=== PATIENT | male | born 1955 | race Caucasian/White ===

== ENCOUNTER 2016-10-16 12:26 | Inpatient (IN) | payer BC ==
[~2016-10-16] VITALS: Ht 177.8 cm; Wt 84.0 kg
[~2016-10-16 12:26] MED LIST: HYDROCODON-ACE1 EAC7 PO
[2016-10-16 14:16] LABS: EOSINOPHIL (%) 2.3 % (0-5); EOSINOPHIL COUNT 0.1 K/uL (0-0.3); HEMATOCRIT 43.7 % (38.0-50.0); IMMATURE GRANULOCYTE (%) 0.2 % (0.0-0.7); INSTRUMENT ABS NEUTROPHIL CT 3.8 K/uL; LYMPHOCYTE COUNT 1.2 K/uL (1.0-2.8); MCH 29.8 PG (29.0-34.0); MCHC 33.9 G/DL (30.0-36.0); MCV 87.9 FL (86-99); MEAN PLAT.VOLUME 11.9 uM^3 (9.0-12.4); MONOCYTE (%) 8.3 % (3-12); MONOCYTE COUNT 0.5 K/uL (0-0.8); NEUTROPHIL (%) 67.9 % (45-76); NEUTROPHIL COUNT 3.8 K/uL (1.8-6.4); PLATELET COUNT 114 K/uL (156-360); RBC DIS.WIDTH-CV 12.3 % (11.8-14.6); RBC DIS.WIDTH-SD 39.5 % (39-53); RED BLOOD COUNT 4.97 M/uL (4.00-5.50); WHITE BLOOD COUNT 5.6 K/uL (4.1-10.2)
[2016-10-16 14:29] LABS: CHLORIDE 108 mEq/L (99-109); POTASSIUM 4.4 mEq/L (3.7-5.4); SODIUM 140 mEq/L (136-147)
[2016-10-16 14:31] LABS: GLUCOSE 98 mg/dL (70-99)
[2016-10-16 14:32] LABS: ANION GAP 9 MEQ/L (2-14)
[2016-10-16 14:33] LABS: TOTAL BILIRUBIN 0.7 mg/dL (0.0-1.0)
[2016-10-16 14:35] LABS: ALKALINE PHOSPHATASE 65 IU/L (3-129); GFR ESTIMATE (CALCULATED) 54 mL/min/
[2016-10-16 14:36] LABS: UREA NITROGEN (BUN) 21 mg/dL (9-23)
[2016-10-16 14:40] LABS: TROP-I INTERPRETATION NEGATIVE; TROPONIN-I < 0.01 ng/mL (0.0-0.30)
[2016-10-16] MEDS ORDERED: ADVIL200 MG PO (15:07)
[2016-10-16] MEDS ORDERED: MAGNESIUM400 M1 PO (15:08)
[2016-10-16] MEDS ORDERED: VITAMIN D31000 UNI2 PO (15:08)
[2016-10-16] MEDS ORDERED: UBIQUINOL100 MG PO (15:09)
[2016-10-16] MEDS ORDERED: ASCORBIC ACID100 MG PO (15:12)
[2016-10-16 18:03] LABS: TROP-I INTERPRETATION NEGATIVE; TROPONIN-I < 0.01 ng/mL (0.0-0.30)
[2016-10-16 20:29] VITALS: BP 160/85
[2016-10-16 23:44] VITALS: BP 124/72
[2016-10-17 01:58] LABS: TROP-I INTERPRETATION NEGATIVE; TROPONIN-I < 0.01 ng/mL (0.0-0.30)
[2016-10-17 03:38] VITALS: BP 135/77
[2016-10-17 07:04] LABS: HEMATOCRIT 41.1 % (38.0-50.0); MCHC 33.3 G/DL (30.0-36.0); MCV 89.9 FL (86-99); MEAN PLAT.VOLUME 12.5 uM^3 (9.0-12.4); PLATELET COUNT 98 K/uL (156-360); RBC DIS.WIDTH-CV 12.6 % (11.8-14.6); RBC DIS.WIDTH-SD 41.4 % (39-53); RED BLOOD COUNT 4.57 M/uL (4.00-5.50); WHITE BLOOD COUNT 4.8 K/uL (4.1-10.2)
[2016-10-17 07:36] LABS: ANION GAP 6 MEQ/L (2-14); CHLORIDE 106 MEQ/L (99-109); GFR ESTIMATE (CALCULATED) 47 mL/min/; GLUCOSE 101 mg/dL (70-99); HDL CHOLESTEROL 48 MG/DL (Desirable>=40); LDL CHOLESTEROL 146 mg/dL (Desirable<100); NON-HDL CHOLESTEROL 163 mg/dL (Desirable<160); POTASSIUM 4.6 MEQ/L (3.7-5.4); SAMPLE HEMOLYSIS CHECK 0; SAMPLE ICTERIC CHECK 0; SAMPLE LIPEMIA CHECK 0; SODIUM 140 MEQ/L (136-147); TOTAL CHOLESTEROL 211 mg/dL (Desirable<200); TRIGLYCERIDES 85 MG/DL (Normal: <150); UREA NITROGEN (BUN) 20 mg/dL (9-23)
[2016-10-17 08:22] VITALS: BP 147/78
[2016-10-17 08:28] LABS: Estimated Average Glucose 120 mg/dL (70-123); HEMOGLOBIN A1c (GLYCOHEMOGLOB) 5.8 % HGB (Below 5.7)
[2016-10-17 15:24] VITALS: BP 136/71
[2016-10-17 19:35] VITALS: BP 123/79
[2016-10-17 23:00] VITALS: BP 127/78
[2016-10-18 04:45] VITALS: BP 144/85
[2016-10-18 07:14] VITALS: BP 137/80
[2016-10-18 09:03] LABS: HEMATOCRIT 43.6 % (38.0-50.0); MCH 29.8 PG (29.0-34.0); MCHC 33.7 G/DL (30.0-36.0); MCV 88.4 FL (86-99); PLATELET COUNT 101 K/uL (156-360); RBC DIS.WIDTH-CV 12.4 % (11.8-14.6); RBC DIS.WIDTH-SD 40.6 % (39-53); RED BLOOD COUNT 4.93 M/uL (4.00-5.50); WHITE BLOOD COUNT 4.5 K/uL (4.1-10.2)
[2016-10-18 09:43] LABS: ANION GAP 7 MEQ/L (2-14); CHLORIDE 104 MEQ/L (99-109); GFR ESTIMATE (CALCULATED) 50 mL/min/; GLUCOSE 107 mg/dL (70-99); POTASSIUM 4.5 MEQ/L (3.7-5.4); SAMPLE HEMOLYSIS CHECK 0; SAMPLE ICTERIC CHECK 0; SAMPLE LIPEMIA CHECK 0; SODIUM 139 MEQ/L (136-147); UREA NITROGEN (BUN) 16 mg/dL (9-23)
[2016-10-18] MEDS ORDERED: LOPRESSOR25 MG PO (10:23)
[2016-10-18] MEDS ORDERED: PRAVASTATIN SOD40 MG PO (10:23)
[2016-10-18] MEDS ORDERED: ASPIR-LOW81 MG PO (10:23)
[2016-10-18 11:45] VITALS: BP 164/64
== END 2016-10-18 11:49 | disposition home or self-care (01) | DRG 103 ==
LOC: EME 12:26 → EDOF 16:52 → 4EAST 20:26
PROVIDERS: Emergency Medicine; Hospitalist
DX: R51 Headache (principal); R42 Dizziness and giddiness; R11.0 Nausea; R07.9 Chest pain, unspecified; I16.0 Hypertensive urgency; D69.6 Thrombocytopenia, unspecified; I12.9 Hypertensive chronic kidney disease with stage 1 through stage 4 chronic kidney disease, or unspecified chronic kidney disease; N18.2 Chronic kidney disease, stage 2 (mild)
CPT/HCPCS: 70450; 70551; 80048; 80053; 80061; 83036; 84484; 85025; 85027; 93005; 93306; 93880; 99281; 99285; J1644; J2405; J7030